=== PATIENT | female | born 1965 | race Caucasian/White ===

== ENCOUNTER → 2017-09-29 14:26 | Outpatient (REF) | payer MEDICAID, SELFPAY ==
[2017-09-29 18:53] LABS: Alanine Aminotransferase 54 U/L (12-78); Albumin Level 3.4 gm/dL (3.4-5.0); Albumin/Globulin Ratio 0.9 (1.1-1.8); Alkaline Phosphatase 128 U/L (46-116); Anion Gap 12.2 mEq/L (5-15); Aspartate Amino Transferase 44 U/L (15-37); Bilirubin,Total 0.2 mg/dL (0.2-1.0); Blood Urea Nitrogen 8 mg/dL (7-18); Calcium 8.6 mg/dL (8.5-10.1); Carbon Dioxide 29 mmol/L (21.0-32.0); Chloride 104 mmol/L (98-107); Chol/HDL Ratio 5.6 (1-3.5); Cholesterol 156 mg/dL (140-200); Creatinine,Serum 0.74 mg/dL (0.55-1.02); Estimated Glomerular Filt Rate 83 ml/min (>60); GFR (African American) 101 ML/MIN (>60); Globulin 3.8 gm/dl (1.3-3.2); Glucose 113 mg/dL (74-106); HDL Cholesterol 28 mg/dL (29-89); LDL Cholesterol 93 mg/dL (0-130); Potassium 4.2 mmoL/L (3.5-5.1); Sodium 141 mmol/L (136-145); T4 (Thyroxine) 11.3 ug/dl (4.7-13.3); Thyroid Stimulating Hormone 0.66 uIU/ml (0.358-3.740); Total Protein,Serum 7.2 gm/dL (6.4-8.2); Triglycerides 173 mg/dL (30-200); VLDL Cholesterol 35 mg/dL (0-40)
[2017-09-29 19:02] LABS: Basophils # 0.1 K/mm3 (0-0.2); Basophils % 0.5 % (0.1-2.0); Eosinophils # 0.2 K/mm3 (0.0-0.4); Eosinophils % 1.3 % (0.1-12.0); Hematocrit 49.4 % (37.0-47.0); Hemoglobin 15.9 g/dL (12.2-16.2); Lymphocytes % 24.6 K/mm3 (10-50); Mean Corpuscular HGB Conc 32.2 g/dL (31.8-35.4); Mean Corpuscular Hemoglobin 29.7 pg (27.0-31.2); Mean Corpuscular Volume 92.4 fl (81-99); Monocytes # 0.7 K/mm3 (0.1-1.0); Monocytes % 4.5 % (1.7-9.3); Neutrophils # 11.2 K/mm3 (1.8-7.8); Platelet Count 250 K/mm3 (142-424); Red Blood Count 5.35 M/mm3 (4.20-5.40); Red Cell Distribution Width 13.8 % (11.5-17.5); White Blood Count 16.2 K/mm3 (4.8-10.8)
[2017-09-29 19:07] LABS: MANUAL DIFFERENTIAL MANUAL DIFFERENTIAL (MANUAL DIFF)
[2017-09-29 19:57] LABS: Hemoglobin A1C 5.5 % (0.0-7.0)
[2017-09-29 20:07] LABS: Eosinophils % 1 % (0-3); Lymphocytes % 32 % (10-50); Monocytes % 6 % (2-9); Neutrophils % 61 % (42-76); Total Cells Counted 100
[2017-09-29 20:08] LABS: Platelet Estimate Normal; RBC Morphology Normal
[2017-10-02 12:05] LABS: Vitamin D 25 Hydroxy 7.3 ng/mL (30.0-100.0)
== END ==
LOC: LAB 14:26
PROVIDERS: Visit Provider Physician Assistant
DX: E11.9 Type 2 diabetes mellitus without complications (principal); R01.1 Cardiac murmur, unspecified
CPT/HCPCS: 80053; 80061; 82652; 83036; 84436; 84443; 85007; 85025

== ENCOUNTER → 2017-11-25 08:30 | Outpatient (CLI) | payer MEDICAID, SELFPAY ==
--- NOTE | 2017-11-25 08:34 | MM_ITS ---
MM Dig screening mamm BI w/CAD CAD Screening COMPARISON: Digital mammograms 06/27/2013 INDICATION: There is no personal or family history of breast cancer. There is been previous biopsy of the solid mass right breast by ultrasound guidance and presumably a fibroadenoma although I do not have the pathology report for review. TECHNIQUE: Standard CC and MLO images were obtained. R2 CAD reviewed. FINDINGS: Scattered fibroglandular densities are seen in both breasts. Again noted is a dominant asymmetric density with well-defined borders lower inner quadrant right breast. The mass is basically unchanged in size and overall appearance from the previous study in June 2013. There is no new or suspicious lesion and there are no suspicious microcalcifications. There are small nodes in both axilla. IMPRESSION: Fibrofatty parenchyma with stable benign-appearing mass right breast previously biopsied BI-RADS Category: 2 Benign Finding(s) RECOMMENDED FOLLOW-UP: 1YR - 1 YEAR FOLLOW-UP (A letter has been sent to the patient regarding results of the study.)
--- NOTE | 2017-11-25 08:34 | CA_ITS ---
PROCEDURE: 2-D M-mode and color Doppler study INDICATIONS FOR THE TEST: Chest pain+ COPD+ Heart Murmur+ Tobacco Smoking+ Palpitations+ Fatigue Syncope Edema+ Hypertension+Diabetes Mellitus+ Rheumatic Fever SOB SMITH Obesity Hyperlipidemia+ Family History HD+ Additional History anxiety Patient is Tereza Kaplan but images are labeled wrong with the name Jaimie Morales on them. PATIENT INFORMATION HEIGHT: 60 WEIGHT: 162 GENDER: Female B/P: 174/98 2-D/M-MODE INTERPRETATION: 2-D MEASUREMENTS OBSERVED VALUES IN CMS Right Ventricular Dimension (RVDd) 1.7 Interventricular Septum (Thickness)(IVsd) 1.1 Left Ventricular Internal Dimensions(LVIDd) 3.8 Left Ventricular Posterior Wall (Thickness)(LVPWd) 1.0 Aortic Root 2.9 Aortic Cusp Separation 1.8 Left Atrial Dimensions (LAD) 3.7 2D 1. Left atrium is mildly enlarged, left ventricle is normal size, there is mild concentric left ventricular hypertrophy, visually estimated ejection fraction 55% with no obvious regional wall motion abnormality. 2. The right atrium and right ventricle are normal size and contractility. 3. The aortic valve is minimally thickened and fibrosed. 4. The mitral and tricuspid valve are grossly normal. 5. The pulmonic valve is poorly visualized. 6. No significant pericardial effusion noted. DOPPLER INTERROGATION: Doppler interrogation of the aortic, mitral and tricuspid valvular presence of mild mitral and tricuspid regurgitation, tricuspid and jet velocity insufficient for calculation of the right ventricular systolic pressure, grade 1 diastolic dysfunction seen with tissue Doppler evidence of raised left atrial pressure. Agitated saline contrast study fails to identify intracardiac shunt. CONCLUSION: 1. Mildly enlarged left atrium, normal left ventricular size, mild concentric left ventricular hypertrophy, visually estimated ejection fraction 55% with no obvious regional wall motion abnormality, grade 1 diastolic dysfunction seen with tissue Doppler evidence of raised left atrial pressure. 2. Mild mitral and tricuspid regurgitation 3. Agitated saline contrast study fails to identify intracardiac shunt.
== END ==
PROVIDERS: PCP Physician Assistant; Visit Provider Physician Assistant
DX: R01.1 Cardiac murmur, unspecified (principal); Z12.31 Encounter for screening mammogram for malignant neoplasm of breast
CPT/HCPCS: 77067; 93306

== ENCOUNTER → 2019-10-25 17:23 | Outpatient (CLI) | payer BC, SELFPAY ==
[2019-10-25 17:50] LABS: Chloride 106 mmol/L (98-107); Sodium 140 mmol/L (136-145)
[2019-10-25 17:51] LABS: Potassium 3.9 mmoL/L (3.5-5.1)
[2019-10-25 17:53] LABS: Alanine Aminotransferase 35 U/L (12-78); Albumin Level 3.7 g/dl (3.5-5.0); Albumin/Globulin Ratio 1.3 (1.1-1.8); Alkaline Phosphatase 108 U/L (38-126); Anion Gap 13.9 mEq/L (5-15); Aspartate Amino Transferase 42 U/L (14-36); Bilirubin,Total 0.4 mg/dl (0.2-1.3); Blood Urea Nitrogen 10 mg/dl (7-17); Carbon Dioxide 24 mmol/L (22.0-30.0); Estimated Glomerular Filt Rate 105 ml/min (>60); GFR (African American) 127 ML/MIN (>60); Globulin 2.8 g/dL (1.3-3.2); Total Protein,Serum 6.5 g/dl (6.3-8.2)
[2019-10-25 17:54] LABS: Calcium 8.9 mg/dl (8.4-10.2); Chol/HDL Ratio 3.8 (1-3.5); Cholesterol 124 mg/dl (140-200); Glucose 100 mg/dl (74-100); HDL Cholesterol 33 mg/dl (40-60); Triglycerides 103 mg/dl (30-150); VLDL Cholesterol 21 mg/dL (0-40)
[2019-10-25 18:05] LABS: Direct LDL Cholesterol 63.65 mg/dL (100-129)
[2019-10-25 18:10] LABS: T4 (Thyroxine) 11.5 ug/dl (5.53-11.0)
[2019-10-25 18:15] LABS: Basophils # 0.1 K/mm3 (0-0.2); Basophils % 0.5 % (0.1-2.0); Eosinophils # 0.2 K/mm3 (0.0-0.4); Eosinophils % 1.3 % (0.1-12.0); Hematocrit 43.1 % (37.0-47.0); Hemoglobin 14.1 g/dL (12.2-16.2); Lymphocytes # 4.8 K/mm3 (0.7-4.5); Lymphocytes % 42.3 % (10-50); Mean Corpuscular HGB Conc 32.9 g/dL (31.8-35.4); Mean Corpuscular Hemoglobin 30.5 pg (27.0-31.2); Mean Corpuscular Volume 92.9 fl (81-99); Monocytes # 0.6 K/mm3 (0.1-1.0); Monocytes % 5.5 % (1.7-9.3); Neutrophils # 5.7 K/mm3 (1.8-7.8); Neutrophils % 50.4 % (37.0-80.0); Platelet Count 253 K/mm3 (142-424); Red Blood Count 4.64 M/mm3 (4.20-5.40); Red Cell Distribution Width 13.9 % (11.5-17.5); White Blood Count 11.3 K/mm3 (4.8-10.8)
[2019-10-27 11:48] LABS: Vitamin D 25 Hydroxy 4.6 ng/mL (30.0-100.0)
== END ==
PROVIDERS: Visit Provider Physician Assistant
DX: E11.9 Type 2 diabetes mellitus without complications (principal); E55.9 Vitamin D deficiency, unspecified; E78.5 Hyperlipidemia, unspecified
CPT/HCPCS: 80053; 80061; 82652; 83036; 84436; 84443; 85025

== ENCOUNTER 2023-04-19 19:26 | Emergency (ER) | payer SELFPAY ==
[2023-04-19 19:26] VITALS: BP 107/78; PULSE 105; RESP 18; TEMP 37.6; O2SAT 96; BMI 28.5
--- NOTE | 2023-04-19 19:38 | ECG_ITS ---
APPROVED REPORT Exam: Resting ECG HR:108 bpm ECG Measurements Heart Rate 108 AXES CA 128 P 41 QRSd 87 QRS 52 QT 340 T 57 QTc 403 Conclusion SINUS TACHYCARDIA ABNORMAL RHYTHM ECG UNCONFIRMED REPORT Electronically signed by : Jonn Alejandro MD 04/20/2023 15:50:40
--- NOTE | 2023-04-19 19:38 | XR_ITS ---
PROCEDURE INFORMATION: Exam: XR Chest Exam date and time: 04/19/2023 7:43 PM Age: 58 years old Clinical indication: Dyspnea TECHNIQUE: Imaging protocol: Radiologic exam of the chest. Views: 1 view. COMPARISON: CR [id number] XR chest portable 03/20/2018 3:30 PM FINDINGS: Lungs: Unremarkable. No consolidation. Pleural spaces: Unremarkable. No pleural effusion. No pneumothorax. Heart/Mediastinum: Unremarkable. No cardiomegaly. Bones/joints: Unremarkable. IMPRESSION: No acute findings.
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
[2023-04-19 19:55] LABS: Basophils # 0.1 K/mm3 (0-0.2); Basophils % 0.9 % (0.1-2.0); Eosinophils # 0.3 K/mm3 (0.0-0.4); Eosinophils % 2.3 % (0.1-12.0); Hematocrit 42.4 % (37.0-47.0); Hemoglobin 14.2 g/dL (12.2-16.2); Lymphocytes # 5.9 K/mm3 (0.7-4.5); Lymphocytes % 44.1 % (10-50); Mean Corpuscular HGB Conc 33.4 g/dL (31.8-35.4); Mean Corpuscular Hemoglobin 30.3 pg (27.0-31.2); Mean Corpuscular Volume 90.5 fl (81-99); Mean Platelet Volume 7.8 fl (7.4-10.4); Monocytes # 0.6 K/mm3 (0.1-1.0); Monocytes % 4.8 % (1.7-9.3); Neutrophils # 6.4 K/mm3 (1.8-7.8); Neutrophils % 47.9 % (37.0-80.0); Platelet Count 355 K/mm3 (142-424); Red Blood Count 4.68 M/mm3 (4.20-5.40); Red Cell Distribution Width 13.9 % (11.5-17.5); White Blood Count 13.4 K/mm3 (4.8-10.8)
[2023-04-19 19:56] LABS: Chloride 101 mmol/L (98-107)
[2023-04-19 19:57] LABS: Potassium 3.6 mmoL/L (3.5-5.1); Sodium 140 mmol/L (136-145)
[2023-04-19 19:59] LABS: Alanine Aminotransferase 70 U/L (12-78); Aspartate Amino Transferase 102 U/L (14-36); Blood Urea Nitrogen 16 mg/dl (7-17); Creatinine Clearance Estimated 94 mL/min (50-200); Estimated Glomerular Filt Rate 87 ml/min (>60); GFR (African American) 105 ML/MIN (>60)
[2023-04-19 20:00] LABS: Albumin Level 3.7 g/dl (3.5-5.0); Albumin/Globulin Ratio 1.1 (1.1-1.8); Alkaline Phosphatase 129 U/L (38-126); Anion Gap 13.6 mEq/L (5-15); Bilirubin,Total 0.8 mg/dl (0.2-1.3); Carbon Dioxide 29 mmol/L (22.0-30.0); Globulin 3.3 g/dL (1.3-3.2); Glucose 119 mg/dl (74-100)
[2023-04-19 20:02] LABS: INR 1.06 (0.9-1.1); Prothrombin Time 11.4 seconds (10.1-12.5)
[2023-04-19 20:09] LABS: NT Pro Brain Natriuretic Pep. < 20.0 pg/mL (0-125)
[2023-04-19 20:13] LABS: Troponin I < 0.01 ng/ml (0.00-0.034)
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
--- NOTE | 2023-04-19 20:30 | PC.NURSE ---
PATIENT SPOKE WITH [employer] [employer]PR[employer]ICE.
[2023-04-19 20:49] VITALS: BP 110/71; PULSE 91; RESP 18; TEMP 37.2; O2SAT 96
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
== END 2023-04-19 20:49 | disposition home or self-care (01) ==
PROVIDERS: Emergency Provider Student in an Organized Health Care Education/Training Program; PCP Emergency Medicine
DX: M79.604 Pain in right leg (principal); M79.605 Pain in left leg; R60.9 Edema, unspecified; R34 Anuria and oliguria; I25.10 Atherosclerotic heart disease of native coronary artery without angina pectoris; I10 Essential (primary) hypertension; E78.5 Hyperlipidemia, unspecified; G40.909 Epilepsy, unspecified, not intractable, without status epilepticus; E11.41 Type 2 diabetes mellitus with diabetic mononeuropathy; R01.1 Cardiac murmur, unspecified; F41.9 Anxiety disorder, unspecified; F17.210 Nicotine dependence, cigarettes, uncomplicated; R00.0 Tachycardia, unspecified
CPT/HCPCS: 71045; 80053; 83880; 84484; 85025; 85610; 93005; 99285

== ENCOUNTER 2023-05-15 10:07 | Emergency (ER) | payer OTHER, SELFPAY ==
[2023-05-15 10:08] VITALS: BP 140/76; PULSE 97; RESP 17; TEMP 36.8; O2SAT 100; BMI 28.5
--- NOTE | 2023-05-15 10:18 | PC.NURSE ---
DR MENDOZA AT BEDSIDE
--- NOTE | 2023-05-15 10:20 | XR_ITS ---
PROCEDURE INFORMATION: Exam: XR Chest Exam date and time: 05/15/2023 10:53 AM Age: 58 years old Clinical indication: Cough; Additional info: Cough, SOA TECHNIQUE: Imaging protocol: Radiologic exam of the chest. Views: 2 views. COMPARISON: CR XR CHEST PORTABLE 04/19/2023 7:43 PM FINDINGS: Lungs: Unremarkable. No consolidation. Pleural spaces: Unremarkable. No pleural effusion. No pneumothorax. Heart/Mediastinum: Unremarkable. No cardiomegaly. Bones/joints: Unremarkable. IMPRESSION: No acute findings.
--- NOTE | 2023-05-15 10:20 | CA_ITS ---
FINAL REPORT CLINICAL HISTORY: R>LLE swelling, CAD, CHF, DM, HTN, HLD, SMOKER, NON-COMPLIANT WITH MEDS. FINDINGS: DUPLEX VENOUS SONOGRAPHY OF THE RIGHT LOWER EXTREMITY Multiple transverse and longitudinal scans were performed of the femoropopliteal deep venous system, with augmentation and compression maneuvers. Normal phasic flow was noted in the visualized deep venous system. No intraluminal increased echogenicity is noted to suggest thrombus. There is normal compression and augmentation of the venous structures. No abnormal venous collaterals are seen. IMPRESSION: No evidence of deep venous thrombosis of the right lower extremity. Reviewed, Interpreted and Dictated by Katie Templeton MD Transcribed by Naomi Vale Authenticated and [facility]
--- NOTE | 2023-05-15 10:21 | HMH.EDGENADL ---
Discharge Plan Disposition Patient Disposition: Home, Self-Care Condition: Good Prescriptions Prescriptions: New lisinopril 10 mg tablet 10 mg PO DAILY Qty: 30 0RF atenolol 25 mg tablet 25 mg PO DAILY Qty: 30 0RF No Action clonazepam 1 mg tablet 1 mg PO BID citalopram [Celexa] 20 mg tablet 20 mg PO DAILY furosemide [Lasix] 20 mg tablet 20 mg PO DAILY lisinopril 20 mg tablet 20 mg PO DAILY Qty: 90 0RF isosorbide mononitrate 60 mg tablet extended release 24 hr 60 mg PO DAILY Qty: 90 0RF metoprolol tartrate 50 mg tablet 50 mg PO BID Qty: 180 0RF (DME) blood-glucose meter [Blood Glucose Monitoring] Kit See Rx Instructions .ROUTE .MEDSUPPLY Qty: 1 0RF Rx Instructions: As directed hydrochlorothiazide 12.5 mg tablet 12.5 mg PO DAILY Qty: 30 2RF aspirin [Adult Low Dose Aspirin] 81 mg tablet,delayed release (DR/EC) 81 mg PO DAILY (DME) Blood Glucose Test Strip See Rx Instructions .ROUTE .MEDSUPPLY Qty: 100 5RF Rx Instructions: BID testing promethazine 25 mg tablet 25 mg PO Q6H PRN (Reason: nausea and vomiting) Qty: 14 0RF (DME) lancets [Advanced Travel Lancets] 30 gauge misc See Rx Instructions .ROUTE .MEDSUPPLY Qty: 100 8RF Rx Instructions: BID testing cholecalciferol (vitamin D3) 25 mcg (1,000 unit) capsule 1,000 unit PO DAILY Qty: 90 1RF ergocalciferol (vitamin D2) 1,250 mcg (50,000 unit) capsule 50,000 unit PO QWEEK 90 Days Qty: 12 0RF buprenorphine-naloxone 1 EACH tablet, sublingual 2 each SL DAILY Referrals Follow up/Referrals: Winston Nava MD [Primary Care Provider] - See instructions Activity Restrictions/Add. Instructions Additional Instructions/Restrictions: You were evaluated in the emergency department today. Please peanut picker your prescriptions at the pharmacy and take them as prescribed. Follow-up closely with your primary care provider for reassessment. Take Tylenol and ibuprofen at home as needed for pain and fever. Return to the emergency department for any new or worsening symptoms. Clinical Impressions Clinical Impression: Viral URI with cough, Hypertension Instructions Patient Instructions: DI for Viral Upper Respiratory Infection -- Adult Discharge ED Provider: Evangelina Wheat General Adult HPI General Chief complaint: Upper Respiratory Infection Stated complaint: sore throat, Rt leg swollen Time Seen by Provider: 05/15/23 10:15 History of Present Illness HPI narrative: This patient is a 58-year-old female with a history of CAD, CHF, type 2 diabetes, hypertension, and hyperlipidemia presenting to the emergency department for evaluation with concern for sore throat and cough that started last night. She also notes that her right leg is more swollen than her left leg. She denies any other concerns or complaints at this time. She states that she has been out of her medications, including lisinopril and atenolol, for several weeks now. She states she is also on Lasix at home, which she has been compliant with. She denies any other medication issues. She denies any fever but does note chills. She denies any chest pain, but does note shortness of breath associated with her cough. She denies any abdominal pain, nausea, vomiting, changes bowel movements, or other concern. Related Data Home Medications Medication Instructions Recorded Confirmed aspirin 81 mg tablet,delayed 81 mg PO DAILY BLOOD PRESSURE 02/08/19 10/25/19 release (Adult Low Dose Aspirin) buprenorphine 8 mg-naloxone 2 mg 2 each SL DAILY UNKNOWN 10/17/19 10/25/19 sublingual tablet citalopram 20 mg tablet (Celexa) 20 mg PO DAILY 10/25/19 10/25/19 clonazepam 1 mg tablet 1 mg PO BID 10/25/19 10/25/19 furosemide 20 mg tablet (Lasix) 20 mg PO DAILY 10/25/19 10/25/19 Previous Rx's Medication Instructions Recorded blood-glucose meter (Blood Glucose #1 ea 10/25/19 Monitoring kit) haley
[2023-05-15 10:29] VITALS: BP 155/76; PULSE 90; O2SAT 87
--- NOTE | 2023-05-15 10:44 | PC.NURSE ---
Addendum entered by Juli Dowling, EMT 05/15/23 10:48: vascular here for doppler of legs, not an echo Original Note: vascular at bedside for echo
[2023-05-15 10:48] LABS: Basophils # 0.1 K/mm3 (0-0.2); Basophils % 0.5 % (0.1-2.0); Eosinophils # 0.4 K/mm3 (0.0-0.4); Eosinophils % 2.9 % (0.1-12.0); Hematocrit 44.5 % (37.0-47.0); Hemoglobin 14.4 g/dL (12.2-16.2); Lymphocytes # 4.2 K/mm3 (0.7-4.5); Lymphocytes % 29.5 % (10-50); Mean Corpuscular HGB Conc 32.4 g/dL (31.8-35.4); Mean Corpuscular Hemoglobin 30.2 pg (27.0-31.2); Mean Corpuscular Volume 93.4 fl (81-99); Mean Platelet Volume 8.1 fl (7.4-10.4); Monocytes # 0.6 K/mm3 (0.1-1.0); Neutrophils % 63.1 % (37.0-80.0); Platelet Count 290 K/mm3 (142-424); Red Blood Count 4.77 M/mm3 (4.20-5.40); Red Cell Distribution Width 13.6 % (11.5-17.5); White Blood Count 14.3 K/mm3 (4.8-10.8)
[2023-05-15 10:53] LABS: Alanine Aminotransferase 54 U/L (12-78); Albumin Level 3.6 g/dl (3.5-5.0); Albumin/Globulin Ratio 1.2 (1.1-1.8); Alkaline Phosphatase 135 U/L (38-126); Anion Gap 11.2 mEq/L (5-15); Aspartate Amino Transferase 59 U/L (14-36); Bilirubin,Total 0.6 mg/dl (0.2-1.3); Blood Urea Nitrogen 10 mg/dl (7-17); Calcium 8.5 mg/dl (8.4-10.2); Carbon Dioxide 29 mmol/L (22.0-30.0); Chloride 104 mmol/L (98-107); Creatinine Clearance Estimated 109 mL/min (50-200); Estimated Glomerular Filt Rate 103 ml/min (>60); GFR (African American) 125 ML/MIN (>60); Globulin 3.1 g/dL (1.3-3.2); Glucose 188 mg/dl (74-100); Potassium 4.2 mmoL/L (3.5-5.1); Sodium 140 mmol/L (136-145); Total Protein,Serum 6.7 g/dl (6.3-8.2)
--- NOTE | 2023-05-15 11:00 | ECG_ITS ---
APPROVED REPORT Exam: Resting ECG HR:86 bpm ECG Measurements Heart Rate 86 AXES CO 128 P 56 QRSd 85 QRS 57 QT 377 T 59 QTc 421 Conclusion SINUS RHYTHM NORMAL ECG UNCONFIRMED REPORT Electronically signed by : Jonn Alejandro MD 05/15/2023 12:06:32
--- NOTE | 2023-05-15 11:02 | PC.NURSE ---
PT TO XR
--- NOTE | 2023-05-15 11:02 | PC.NURSE ---
covid swab sent to lab
--- NOTE | 2023-05-15 11:02 | PC.NURSE ---
pt is gone to rad via wheelchair
[2023-05-15 11:03] LABS: NT Pro Brain Natriuretic Pep. 45.2 pg/mL (0-125)
--- NOTE | 2023-05-15 11:05 | PC.NURSE ---
PT RETURNED FROM XR
[2023-05-15 11:07] LABS: Coronavirus 19, PCR Not Detected (NotDetected); Influenza A, PCR Not Detected (NotDetected); Influenza B, PCR Not Detected (NotDetected)
[2023-05-15 12:40] VITALS: BP 137/70; PULSE 88; RESP 17; TEMP 36.8; O2SAT 90
== END 2023-05-15 12:41 | disposition home or self-care (01) ==
PROVIDERS: Emergency Provider Emergency Medicine; PCP Emergency Medicine
DX: J06.9 Acute upper respiratory infection, unspecified (principal); I11.0 Hypertensive heart disease with heart failure; I50.9 Heart failure, unspecified; I25.10 Atherosclerotic heart disease of native coronary artery without angina pectoris; E11.40 Type 2 diabetes mellitus with diabetic neuropathy, unspecified; E78.5 Hyperlipidemia, unspecified; G40.909 Epilepsy, unspecified, not intractable, without status epilepticus; R01.1 Cardiac murmur, unspecified; F41.9 Anxiety disorder, unspecified; F17.210 Nicotine dependence, cigarettes, uncomplicated
CPT/HCPCS: 71046; 80053; 83880; 85025; 87636; 93005; 93971; 99285